=== PATIENT | male | born 1960 | race Caucasian/White ===

== ENCOUNTER 2016-10-25 20:05 | Emergency (ER) | payer OTHER ==
[2016-10-25 22:31] LABS: BASOPHIL 0.6 % (0-2); EOSINOPHIL 2.9 % (0-5); HCT 41.9 % (42.0-52.0); HGB 14.7 g/dl (13.2-18.0); LYMPHOCYTE 20.4 % (15-48); MCH 32.8 pg (25.0-31.0); MCHC 35.1 g/dL (32.0-36.0); MCV 93.5 fL (78.0-100.0); MONOCYTE 12.9 % (0-12); MPV 9.6 fL (6.0-9.5); NEUTROPHIL 63.2 % (41-80); PLT 230 K/uL (150-400); RBC 4.48 M/uL (4.70-6.00); RDW 13.1 % (11.5-14.0); WBC 8.1 K/uL (4.0-10.5)
[2016-10-25 22:50] LABS: ALBUMIN 4.7 g/dL (3.5-5.0); BILIRUBIN - TOTAL 0.3 mg/dL (0.1-1.0); GLOBULIN (CALCULATION) 3.2 g/dL (2.2-4.2); POTASSIUM 4.4 mmol/L (3.5-5.1); TOTAL PROTEIN 7.9 g/dL (6.4-8.3)
== END 2016-10-25 23:59 | disposition home or self-care (01) ==
LOC: FER 20:05
PROVIDERS: Emergency Medicine
DX: J02.0 Streptococcal pharyngitis (principal); E11.9 Type 2 diabetes mellitus without complications; I25.2 Old myocardial infarction; Z95.5 Presence of coronary angioplasty implant and graft; Z90.49 Acquired absence of other specified parts of digestive tract
CPT/HCPCS: 36415; 71020; 80053; 84484; 85025; 87450; 87804; 87899; J0561

== ENCOUNTER 2021-06-06 02:33 | Emergency (ER) | payer OTHER ==
[~2021-06-06 02:33] MED LIST: ASPIRIN EC81 MG PO; ASPIRIN81 MG PO; EDARBI80 MG PO; FLOMAX 0.4 MG0.4 MG PO; GLUCOTROL10 MG PO; HCTZ12.5 MG PO; IBUPROFEN800 MG PO; JARDIANCE25 MG PO; LIPITOR20 MG PO; METFORMIN HCL500 M2 PO; METFORMIN HCL500 MG PO; NEURONTIN300 MG PO; ONE DAILY COMP1 EACH PO; PERCOCET 5-3251 EACH PO; TAMIFLU 75MG CA75 MG PO; TRULICITY1.5 MG/0.5 SC; ZOFRAN ODT4 MG SL
[2021-06-06] MEDS ORDERED: PERCOCET 5-3251 EACH PO (06:00)
== END 2021-06-06 06:23 | disposition home or self-care (01) ==
LOC: FER 02:33
DX: S92.411A Displaced fracture of proximal phalanx of right great toe, initial encounter for closed fracture (principal); I25.2 Old myocardial infarction; I10 Essential (primary) hypertension; E11.9 Type 2 diabetes mellitus without complications; Z79.84 Long term (current) use of oral hypoglycemic drugs; Z79.899 Other long term (current) drug therapy; W10.9XXA Fall (on) (from) unspecified stairs and steps, initial encounter; Y92.009 Unspecified place in unspecified non-institutional (private) residence as the place of occurrence of the external cause
CPT/HCPCS: 73620; 96374; J1170